=== PATIENT | male | born 1970 | race African-American/Black ===

== ENCOUNTER 2019-03-28 19:34 | Emergency (ER) | payer MEDICAID ==
[~2019-03-28] VITALS: Ht 177.8 cm; Wt 79.0 kg
[2019-03-29 02:10] VITALS: BP 126/55
== END 2019-03-29 02:12 | disposition home or self-care (01) ==
LOC: ER 19:34
DX: R00.2 Palpitations (principal); F12.10 Cannabis abuse, uncomplicated
CPT/HCPCS: 93005; 99283